=== PATIENT | female | born 1945 ===

== ENCOUNTER 2021-11-09 07:15 | Inpatient (IN) | payer OTHER ==
[~2021-11-09] VITALS: Ht 157.5 cm; Wt 62.6 kg
[2021-11-14] MEDS ORDERED: FOLIC ACID1 MG (08:20)
[2021-11-14] MEDS ORDERED: FENOFIBRATE145 MG (08:20)
[2021-11-14] MEDS ORDERED: AMLODIPINE BESYL5 MG (08:20)
[2021-11-14] MEDS ORDERED: FERROUS SULFAT325 MG (08:20)
[2021-11-14] MEDS ORDERED: JUBLIA4 ML (08:21)
[2021-11-14] MEDS ORDERED: ABANEU-SL TABL1 EACH (08:21)
[2021-11-16] MEDS ORDERED: CEFADROXIL500 MG PO (19:00)
[2021-11-16] MEDS ORDERED: PERCOCET 5-3251 EACH PO (19:00)
[2021-11-16] MEDS ORDERED: ELIQUIS2.5 MG PO (19:00)
== END 2021-11-16 22:44 | disposition home or self-care (01) | DRG 470 ==
LOC: O/R 11-14 06:10 → SURH 11-14 07:15 → SURG 11-14 19:16
PROVIDERS: ADMIT Orthopaedic Surgery; ATTEND Orthopaedic Surgery
PROC: 0SRD0J9 Replacement of Left Knee Joint with Synthetic Substitute, Cemented, Open Approach (ICD-10-PCS; principal; 2021-11-14 10:00)
DX: M17.12 Unilateral primary osteoarthritis, left knee (principal); M22.12 Recurrent subluxation of patella, left knee; E66.8 Other obesity; E03.8 Other specified hypothyroidism; I12.9 Hypertensive chronic kidney disease with stage 1 through stage 4 chronic kidney disease, or unspecified chronic kidney disease; N18.30 Chronic kidney disease, stage 3 unspecified